=== PATIENT | female | born 1980 | race Caucasian/White ===

== ENCOUNTER 2017-02-27 15:53 | Emergency (ER) | payer MEDICAID ==
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
[2017-02-27] MEDS ORDERED: IBUPROFEN 800 MG TABLET PO ONE (16:51)
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
[2017-02-27 18:45] VITALS: BP 127/79
== END 2017-02-27 18:45 | disposition home or self-care (01) ==
LOC: ER 15:53
DX: H57.11 Ocular pain, right eye (principal); R22.0 Localized swelling, mass and lump, head; Y09 Assault by unspecified means; F17.200 Nicotine dependence, unspecified, uncomplicated
CPT/HCPCS: 99284; 72110; 71101; 72070; 70486; J3490